=== PATIENT | female | born 1990 | race Caucasian/White ===

== ENCOUNTER 2019-04-21 14:01 | Emergency (ER) | payer BC, MEDICAID ==
[~2019-04-21] VITALS: Ht 157.5 cm; Wt 59.0 kg
--- NOTE | 2019-04-21 14:21 | NUR ---
REECE COLE AT BEDSIDE FOR MSE.
[2019-04-21 14:53] VITALS: BP 116/85
--- NOTE | 2019-04-21 14:53 | NUR ---
Patient discharged to home in stable conditon. Written and verbal after care instructions given. Patient verbalizes understanding of instructions. ALL BELONGINGS W/ PT. PT SELF-AMBULATED W/O DIFFICULTY.
== END 2019-04-21 14:54 | disposition home or self-care (01) ==
LOC: ER 14:01
DX: S60.221A Contusion of right hand, initial encounter (principal); Z88.0 Allergy status to penicillin; Z88.2 Allergy status to sulfonamides; Z88.1 Allergy status to other antibiotic agents; Z88.8 Allergy status to other drugs, medicaments and biological substances; W22.8XXA Striking against or struck by other objects, initial encounter; Y93.89 Activity, other specified; Y92.89 Other specified places as the place of occurrence of the external cause; Y99.8 Other external cause status
CPT/HCPCS: 73130; A4663

== ENCOUNTER 2019-04-21 16:31 | Emergency (ER) | payer BC, MEDICAID ==
[~2019-04-21] VITALS: Ht 157.5 cm; Wt 59.0 kg
[2019-04-21 17:06] LABS: *BILIRUBIN,URIN 1+ (NEGATIVE); *BLOOD, URINE 1+ (NEGATIVE); *COLOR,URINE DARK YELLOW (YELLOW); *KETONES,URINE NEGATIVE (NEGATIVE); LEUKOCYTE ESTERASE ,URINE 2+ (NEGATIVE); NITRITE, URINE POSITIVE (NEGATIVE); UGLUCOSE NEGATIVE (NEGATIVE)
[2019-04-21 17:07] VITALS: BP 131/81
[2019-04-21 17:11] LABS: *CLARITY,URINE CLOUDY (CLEAR)
[2019-04-21 17:12] LABS: *URINE HCG, QUAL NEGATIVE (NEGATIVE)
[2019-04-21 17:26] LABS: BACTERIA,URINE MANY /HPF (NONE SEEN); SQUAMOUS EPITHELIAL CELL,UR FEW /HPF (NONE SEEN); WBC,URINE 80-100 /HPF (0-3)
== END 2019-04-21 17:07 | disposition home or self-care (01) ==
LOC: ER 16:31
DX: N39.0 Urinary tract infection, site not specified (principal); F17.210 Nicotine dependence, cigarettes, uncomplicated; F12.10 Cannabis abuse, uncomplicated; F15.10 Other stimulant abuse, uncomplicated; Z88.0 Allergy status to penicillin; Z88.2 Allergy status to sulfonamides; Z88.1 Allergy status to other antibiotic agents; Z88.8 Allergy status to other drugs, medicaments and biological substances
CPT/HCPCS: 84703; 87086; A4663